=== PATIENT | female | born 1970 | race Caucasian/White ===

== ENCOUNTER 2021-03-12 12:38 | Inpatient (IN) | payer MEDICAID ==
[~2021-03-12] VITALS: Ht 162.6 cm; Wt 75.6 kg
[2021-03-12] MEDS ORDERED: IRON (13:28)
[2021-03-12] MEDS ORDERED: OMEPRAZOLE (13:28)
[2021-03-12 15:28] LABS: CREATININE 0.9 mg/dL (0.6-1.3)
[2021-03-12 15:29] LABS: MEAN CORPUSCULAR HEMOGLOBIN 24.6 uug (24.7-32.8); MEAN CORPUSCULAR VOLUME 76.5 fL (75.5-95.3); PLATELET COUNT (AUTO) 151 K/uL (179-408)
[2021-03-12 15:40] LABS: BILIRUBIN,TOTAL 0.2 mg/dL (0.2-1.0); TOTAL PROTEIN, SERUM 8.2 g/dL (6.4-8.2)
[2021-03-12] MEDS ORDERED: IV NORMAL SALINE 1000 ML BAG IV ONE (16:00)
[2021-03-12] MEDS ORDERED: KETOROLAC TROMETHAMINE 30 MG INJ IVP ONE (16:00)
[2021-03-12] MEDS ORDERED: KETOROLAC TROMETHAMINE 30 MG INJ ONE (16:09)
[2021-03-12] MEDS ORDERED: IOHEXOL 350 100 ML INFUS..BTL ONE (16:36)
[2021-03-12] MEDS ORDERED: IV NORMAL SALINE 250 ML IV ONE (16:36)
[2021-03-12] MEDS ORDERED: SWABABLE VALVE TRANSFER SET EA MC ONE (16:36)
--- NOTE | 2021-03-12 19:43 | NUR ---
pt assisted to bsc, pt able to void well. No c/o dizziness or sob.
--- NOTE | 2021-03-12 23:06 | NUR ---
Call to Dr. Bejarano.
--- NOTE | 2021-03-12 23:53 | NUR ---
call to [facility].
--- NOTE | 2021-03-13 00:17 | NUR ---
Dr. Gillespie called back she states she will input new orders.
[2021-03-13] MEDS ORDERED: ONDANSETRON 4 MG/2 ML VIAL IV PRN (00:30)
[2021-03-13] MEDS ORDERED: AZITHROMYCIN IV 500 MG in IV DEXTROSE 5% 250 ML IV SCH (00:30)
[2021-03-13] MEDS ORDERED: ACETAMINOPHEN 650 MG SUPP.RECT RC PRN (00:30)
[2021-03-13] MEDS ORDERED: CEFTRIAXONE 1 G in IV DEXTROSE 5% 50 ML IV SCH (00:30)
--- NOTE | 2021-03-13 00:43 | NUR ---
spoke with Dr. Miguel he states [facility] transfer is fine for pt for transfer to [facility].
[2021-03-13] MEDS ORDERED: hydrALAZINE HCL 20 MG/1 ML VIAL IV PRN (00:45)
--- NOTE | 2021-03-13 01:03 | NUR ---
call from [facility] with [facility] is still not able to get transport at this time well call back.
[2021-03-13] MEDS ORDERED: AZITHROMYCIN 500MG/ D5W 250ML IVPB **ER PYXIS ONLY IV ONE (01:20)
[2021-03-13] MEDS ORDERED: CEFTRIAXONE /D5W 50ML IVPB **ER PYXIS IV ONE (01:20)
[2021-03-13] MEDS: DEXAMETHASONE SOD PHOSPHATE 4 MG INJ IV SCH ×2 (01:28→09:00)
--- NOTE | 2021-03-13 02:29 | NUR ---
pt denies pain or sob.
[2021-03-13 06:08] LABS: HEMATOCRIT 38.9 % (31.2-41.9); MEAN CORPUSCULAR HEMOGLOBIN 24.8 uug (24.7-32.8); PLATELET COUNT (AUTO) 149 K/uL (179-408)
[2021-03-13 06:17] LABS: CREATININE 0.9 mg/dL (0.6-1.3)
[2021-03-13 07:02] LABS: BILIRUBIN,TOTAL 0.2 mg/dL (0.2-1.0); MAGNESIUM 2.2 mg/dL (1.8-2.4); PHOSPHOROUS 3.7 mg/dL (2.5-4.9); TOTAL PROTEIN, SERUM 7.9 g/dL (6.4-8.2)
[2021-03-13 07:03] LABS: THYROID STIMULATING HORMONE 1.562 mIU/mL (0.358-3.740)
--- NOTE | 2021-03-13 08:45 | NUR ---
Pt stable in no acute distress at this time. Meal tray provided. Beds switched from [facility] to hospital bed. Pt was able to ambulate and transfer from one to the other. C/O headaches. Tylenol provided per provider order. Pt will take Tylenol after completion of food due to Hx of bypass. Addendum: 03/13/21 at 1354 by GIDEON Pt stable in no acute distress at this time. Meal tray provided. Beds switched from [facility] to hospital bed. Pt was able to ambulate and transfer from one to the other. C/O headaches. Tylenol provided per provider order. Pt will take Tylenol after completion of food due to Hx of gastric bypass Sx.
[2021-03-13] MEDS ORDERED: ACETAMINOPHEN ES 500 MG TABLET ONE (08:51)
[2021-03-13] MEDS: ACETAMINOPHEN ES 500 MG TABLET PO PRN (09:00)
[2021-03-13] MEDS: ENOXAPARIN SODIUM 40 MG/0.4 ML DISP.SYRIN SQ SCH (10:55)
[2021-03-13] MEDS ORDERED: ENOXAPARIN SODIUM 40 MG/0.4 ML DISP.SYRIN SQ ONE (11:00)
--- NOTE | 2021-03-13 13:00 | NUR ---
Pt in no acute distress at this time. Pt speaking with family over the phone. Denies any pain at this time. Lunch try provided.
--- NOTE | 2021-03-13 16:50 | NUR ---
Report give to Lalo, TIFFANIE. Pt will be taken to [facility]. Pt is stable and in no acute distress at this time. Pt will be taken up via gurney by me.
--- NOTE | 2021-03-13 17:05 | NUR ---
Pt taken up via gurney to [facility] in stable condition. A&Ox4.
[2021-03-13 17:30] VITALS: BP 173/84
--- NOTE | 2021-03-13 18:51 | NUR ---
PT alert and oriented x 4. Tele states Sinus nati with ST depression. Was Going to compare with the EKG from ER. No baseline ekg paper on chart. Spoke with DHEERAJ HUBBARD RN states that it was done in er but no copy was provided. Ordered EKG
--- NOTE | 2021-03-13 20:00 | NUR ---
Admitted a 50 years old female with Dx of COVid + and resp. failure. Patient AAOx4. In no acute distress. O2 at 2LPM via NC in place. O2 sat at 100. No coughing noted. HOB elevated. IV site on right wrist area intact and patent. NIHHS assessment done with NIHHS score of 0. Nursing swallow assessment done. COVID precaution initiated. Routine admission care done. Plan of care initiated. Safety measure initiated and call light within reached. Addendum: 03/13/21 at 2330 by NAY ALEXANDER RN Sinus rhythm with BBB and depressed ST on tele with HR of 86/min.
[2021-03-13 20:24] VITALS: BP 114/72
--- NOTE | 2021-03-13 21:50 | NUR ---
Nursing swallow eval. done. WELDER ASSISTANT Wilber notified and placed patient on Regular Kosher diet. Order noted and will carry out.
[2021-03-14] VITALS: BP 149/71
[2021-03-14] MEDS: ACETAMINOPHEN ES 500 MG TABLET PO PRN (01:44)
[2021-03-14] MEDS ORDERED: ACETAMINOPHEN ES 500 MG TABLET ONE (01:46)
--- NOTE | 2021-03-14 02:50 | NUR ---
Patient on titrated to room air, c/o SOB on room air sats 96%, HR 52. Place back on 2 LPM NC O2 with relief.
[2021-03-14 04:47] VITALS: BP 151/74
--- NOTE | 2021-03-14 06:24 | NUR ---
Patient AAOx4. In no acute distress. O2 at 2LPM via NC in place. O2 sat at 98%. . On continuous pulse oximeter monitor. No coughing noted. HOB elevated. Sinus nati with BBB and depressed ST on tele with HR of 56/min. IV site on right wrist area intact and patent. NIHHS score remains 0. COVID precaution maintained. Safety measure maintained and call light within reached.
[2021-03-14 06:57] LABS: HEMATOCRIT 36.9 % (31.2-41.9); MEAN CORPUSCULAR HEMOGLOBIN 24.6 uug (24.7-32.8); PLATELET COUNT (AUTO) 168 K/uL (179-408)
[2021-03-14 07:04] LABS: CREATININE 0.9 mg/dL (0.6-1.3)
[2021-03-14 07:06] LABS: MAGNESIUM 2.1 mg/dL (1.8-2.4)
[2021-03-14 07:18] LABS: THYROID STIMULATING HORMONE 3.905 mIU/mL (0.358-3.740)
--- NOTE | 2021-03-14 07:50 | NUR ---
Awake, alert, oriented x 4, on moderate high back rest, not in distress.
[2021-03-14 08:40] VITALS: BP 133/77
[2021-03-14] MEDS: ASPIRIN 81 MG TAB.CHEW PO SCH (08:41)
[2021-03-14] MEDS: ENOXAPARIN SODIUM 40 MG/0.4 ML DISP.SYRIN SQ SCH (08:42)
--- NOTE | 2021-03-14 10:00 | NUR ---
Placed on room air with O2 sat of 96%, not in distress
[2021-03-14] MEDS ORDERED: FERR-56 PO (10:27)
[2021-03-14 12:15] VITALS: BP 129/68
--- NOTE | 2021-03-14 14:48 | NUR ---
PT/OT/ST Evaluation done. Scheduled for MRI Brain with/without contrast, for moss picker at 1600
[2021-03-14] MEDS ORDERED: INSULIN REGULAR, HUMAN 300 UNITS/3 ML VIAL SQ PRN (15:45)
[2021-03-14] MEDS ORDERED: DEXTROSE 50% 50 ML DISP.SYRIN IV PRN (15:45)
[2021-03-14] MEDS ORDERED: INSULIN REGULAR, HUMAN 300 UNIT/3 ML VIAL SQ PRN (15:45)
[2021-03-14 15:50] VITALS: BP 113/71
--- NOTE | 2021-03-14 16:00 | NUR ---
to [facility] for MRI Brain via ambulance
[2021-03-14] MEDS: BLOOD SUGAR DIAGNOSTIC 1 EACH STRIP VI SCH ×2 (16:04→21:16)
--- NOTE | 2021-03-14 17:30 | NUR ---
Back from [facility], MRI done. Room air at 97%.
[2021-03-14] MEDS ORDERED: GADOTERATE MEGLUMINE 10 MMOL/20 ML VIAL IV ONE (18:39)
--- NOTE | 2021-03-14 19:30 | NUR ---
Received awake, alert and orientedx4. Pt in no acute distress.Pt on room air. Iv intact. Safety and comfort provided. Will continue to monitor.
[2021-03-14 20:09] VITALS: BP 133/77
[2021-03-15] VITALS: BP 139/72
[2021-03-15 04:12] VITALS: BP 151/76
--- NOTE | 2021-03-15 06:24 | NUR ---
Pt slept intermittently. Pt in no acute distress.Pt on room air. Prescribed medication given and pt tolerated it well.Pt on sinus rhythm. Safety and comfort provided .All needs are met. Will Endorse to incoming nurse for continuity of care.
[2021-03-15] MEDS: BLOOD SUGAR DIAGNOSTIC 1 EACH STRIP VI SCH ×2 (06:34→11:04)
[2021-03-15 08:28] LABS: HEMATOCRIT 37.4 % (31.2-41.9); MEAN CORPUSCULAR VOLUME 76.4 fL (75.5-95.3); PLATELET COUNT (AUTO) 106 K/uL (179-408)
[2021-03-15 08:31] LABS: CREATININE 0.8 mg/dL (0.6-1.3); MAGNESIUM 2.4 mg/dL (1.8-2.4); PHOSPHOROUS 3.4 mg/dL (2.5-4.9); POTASSIUM 3.9 mmol/L (3.5-5.1)
[2021-03-15] MEDS: ASPIRIN 81 MG TAB.CHEW PO SCH (09:01)
[2021-03-15] MEDS: ENOXAPARIN SODIUM 40 MG/0.4 ML DISP.SYRIN SQ SCH (09:03)
[2021-03-15 10:59] VITALS: BP 130/6
[2021-03-15] MEDS ORDERED: ATOR20TA PO (13:29)
[2021-03-15] MEDS ORDERED: ASPI81TA31 PO (13:29)
--- NOTE | 2021-03-15 16:30 | NUR ---
D/C TO HOME . PICKED UP BY DAUGHTER IN NO ACUTE DISTRESS. D/C COVID INSTRUCTIONS GIVEN AND EDUCATION FOR COVID AT HOME PROVIDED. D/C WITH [id number]
[2021-03-16] MEDS ORDERED: FERROUS SULFATE 325 MG TABEC PO SCH (09:00)
== END 2021-03-15 16:39 | disposition home or self-care (01) | DRG 47 ==
LOC: ER 12:51 → UNDOADMIN 03-13 01:11 → TRANSITION 03-13 01:11 → TELE3 03-13 15:34
PROVIDERS: ADMIT Student in an Organized Health Care Education/Training Program; ATTEND Nurse Practitioner Acute Care
DX: G45.9 Transient cerebral ischemic attack, unspecified (principal); U07.1 COVID-19; D69.6 Thrombocytopenia, unspecified; E78.5 Hyperlipidemia, unspecified; Z98.84 Bariatric surgery status; R73.03 Prediabetes; R29.700 NIHSS score 0
CPT/HCPCS: 36415; 70030-TC; 70450; 70496; 70553; 71045; 83605; 83615; 83735; 84100; 84443; 85025; 86140; 86403; 87040; 87070; 87400; 93005; 94760; 97161; A4663; A9150; A9575; G0378; J0360; J0456; J0696; J1100; J1650; J1815; J1885; J7030; J7050; Q9967